=== PATIENT | male | born 1935 | race Caucasian/White ===

== ENCOUNTER 2017-08-21 21:23 | Inpatient (IN) | payer OTHER, BC ==
[~2017-08-21] VITALS: Ht 182.9 cm; Wt 119.0 kg
[2017-08-21 22:41] LABS: HEMATOCRIT 43.5 % (38.0-50.0); MCH 32.1 PG (29.0-34.0); MCHC 32.4 G/DL (30.0-36.0); MCV 99.1 FL (86-99); MEAN PLAT.VOLUME 11.3 uM^3 (9.0-12.4); NRBC (%) 0.2 /100 WBC (0-0); PLATELET COUNT 176 K/uL (156-360); RBC DIS.WIDTH-SD 50.8 % (39-53); RED BLOOD COUNT 4.39 M/uL (4.00-5.50); WHITE BLOOD COUNT 9.7 K/uL (4.1-10.2)
[2017-08-21 22:57] LABS: CHLORIDE 105 mEq/L (99-109); POTASSIUM 4.3 mEq/L (3.7-5.4); SODIUM 141 mEq/L (136-147)
[2017-08-21 22:59] LABS: GLUCOSE 230 mg/dL (70-99)
[2017-08-21 23:01] LABS: ANION GAP 10 MEQ/L (2-14)
[2017-08-21 23:04] LABS: UREA NITROGEN (BUN) 31 mg/dL (9-23)
[2017-08-21 23:20] LABS: GFR ESTIMATE (CALCULATED) 56 mL/min/
[2017-08-21 23:23] LABS: ABS NEUTROPHIL COUNT 7.8; ANISOCYTOSIS 1+; EOSINOPHIL ABS CT 0; INSTRUMENT ABS NEUTROPHIL CT 7.3 K/uL; LYMPHOCYTES 12.7 % (15.0-45.0); MYELOCYTES 0.9 %; OVALOCYTES 1+; PLAT.SUFFICIENCY ADEQUATE; POIKILOCYTOSIS 1+; SEG.NEUTROPHILS 80.5 % (46.0-76.0)
[2017-08-22] VITALS (7 sets, daily range): BP systolic 96–144; BP diastolic 55–81
[2017-08-22 00:01] LABS: TROP-I INTERPRETATION NEGATIVE; TROPONIN-I 0.05 ng/mL (0.0-0.30)
[2017-08-22] MEDS ORDERED: LIPITOR80 MG PO (00:42)
[2017-08-22] MEDS ORDERED: ATENOLOL50 MG PO (00:42)
[2017-08-22] MEDS ORDERED: NEURONTIN300 MG PO (00:42)
[2017-08-22] MEDS ORDERED: ASPIR-TRIN325 M1 PO (00:42)
[2017-08-22] MEDS ORDERED: NITROSTAT0.4 MG SL (00:43)
[2017-08-22] MEDS ORDERED: PERFOROMIS20 MCG/2 M IH (00:43)
[2017-08-22] MEDS ORDERED: HUMALOG100 UNIT/2 SC (00:43)
[2017-08-22] MEDS ORDERED: COUMADIN5 MG PO (00:44)
[2017-08-22] MEDS ORDERED: AZATHIOPRINE50 MG PO (00:45)
[2017-08-22] MEDS ORDERED: MESTINON60 MG PO (00:45)
[2017-08-22] MEDS ORDERED: NOVOLIN,HU100 UNITS/ SC ×2 (01:22→01:23)
[2017-08-22] MEDS ORDERED: ALEVE220 MG PO (01:23)
[2017-08-22 01:58] LABS: INTER. NORMALIZED RATIO 1.3; PROTHROMBIN TIME 14.4 SEC (10.2-12.9)
[2017-08-22 02:01] LABS: PTT 26.6 SEC (25-37)
[2017-08-22 02:50] LABS: POINT-OF-CARE METER ID UU13113702
[2017-08-22 04:04] LABS: URIC ACID 6.3 mg/dL (3.1-9.2)
[2017-08-22 04:41] LABS: C-REACTIVE PROTEIN 24.3 MG/L (0-10)
[2017-08-22 07:08] LABS: INTER. NORMALIZED RATIO 1.3; PROTHROMBIN TIME 15.4 SEC (10.2-12.9)
[2017-08-22 07:34] LABS: POINT-OF-CARE METER ID UU14314088
[2017-08-22 11:23] LABS: POINT-OF-CARE METER ID UU14314088
[2017-08-22 17:48] LABS: POINT-OF-CARE METER ID UU13113698
[2017-08-22 18:39] LABS: POINT-OF-CARE METER ID UU13113781
[2017-08-22 19:14] LABS: POINT-OF-CARE METER ID UU13113781
[2017-08-22 20:53] LABS: POINT-OF-CARE METER ID UU14314088
[2017-08-22 23:15] LABS: POINT-OF-CARE METER ID UU14314088
[2017-08-23 02:46] LABS: POINT-OF-CARE METER ID UU13113781
[2017-08-23 05:09] VITALS: BP 138/86
[2017-08-23 06:07] LABS: POINT-OF-CARE METER ID UU14314088
[2017-08-23 06:31] LABS: BASOPHIL COUNT 0.1 K/uL (0-0.1); EOSINOPHIL (%) 0.4 % (0-5); HEMATOCRIT 37.5 % (38.0-50.0); IMMATURE GRANULOCYTE (%) 4.2 % (0.0-0.7); IMMATURE GRANULOCYTE COUNT 0.4 K/uL; INSTRUMENT ABS NEUTROPHIL CT 7.4 K/uL; LYMPHOCYTE COUNT 1.2 K/uL (1.0-2.8); MCH 32.1 PG (29.0-34.0); MCHC 32.5 G/DL (30.0-36.0); MCV 98.7 FL (86-99); MEAN PLAT.VOLUME 10.7 uM^3 (9.0-12.4); MONOCYTE (%) 5.3 % (3-12); MONOCYTE COUNT 0.5 K/uL (0-0.8); NEUTROPHIL (%) 77.3 % (45-76); NEUTROPHIL COUNT 7.4 K/uL (1.8-6.4); PLATELET COUNT 139 K/uL (156-360); RBC DIS.WIDTH-CV 14.2 % (11.8-14.6); RBC DIS.WIDTH-SD 51.4 % (39-53); WHITE BLOOD COUNT 9.6 K/uL (4.1-10.2)
[2017-08-23 06:43] LABS: INTER. NORMALIZED RATIO 1.5
[2017-08-23 06:57] LABS: ANION GAP 9 MEQ/L (2-14); CHLORIDE 106 MEQ/L (99-109); GFR ESTIMATE (CALCULATED) > 59 mL/min/; GLUCOSE 204 mg/dL (70-99); POTASSIUM 4.1 MEQ/L (3.7-5.4); SAMPLE HEMOLYSIS CHECK 0; SAMPLE ICTERIC CHECK 0; SAMPLE LIPEMIA CHECK 0; SODIUM 140 MEQ/L (136-147); UREA NITROGEN (BUN) 21 mg/dL (9-23)
[2017-08-23 07:51] LABS: POINT-OF-CARE METER ID UU13113781
[2017-08-23 08:35] VITALS: BP 123/71
[2017-08-23 11:00] VITALS: BP 132/61
[2017-08-23 11:42] LABS: POINT-OF-CARE METER ID UU13113781
[2017-08-23 11:59] VITALS: BP 111/53
[2017-08-23 12:10] LABS: POINT-OF-CARE METER ID UU14174216
[2017-08-23 13:17] VITALS: BP 114/69
[2017-08-23 16:40] LABS: POINT-OF-CARE METER ID UU13113781
[2017-08-23 19:58] LABS: POINT-OF-CARE METER ID UU13113698
[2017-08-23 23:02] VITALS: BP 146/76
[2017-08-24] VITALS (7 sets, daily range): BP systolic 107–148; BP diastolic 69–97
[2017-08-24 02:32] LABS: BASOPHIL COUNT 0.1 K/uL (0-0.1); EOSINOPHIL COUNT 0.1 K/uL (0-0.3); HEMATOCRIT 36.3 % (38.0-50.0); IMMATURE GRANULOCYTE (%) 3.8 % (0.0-0.7); IMMATURE GRANULOCYTE COUNT 0.3 K/uL; INSTRUMENT ABS NEUTROPHIL CT 5.9 K/uL; LYMPHOCYTE COUNT 1.4 K/uL (1.0-2.8); MCH 32.3 PG (29.0-34.0); MCHC 32.8 G/DL (30.0-36.0); MCV 98.6 FL (86-99); MEAN PLAT.VOLUME 10.6 uM^3 (9.0-12.4); MONOCYTE (%) 7.2 % (3-12); MONOCYTE COUNT 0.6 K/uL (0-0.8); NEUTROPHIL (%) 70.9 % (45-76); NEUTROPHIL COUNT 5.9 K/uL (1.8-6.4); PLATELET COUNT 135 K/uL (156-360); RBC DIS.WIDTH-CV 14.2 % (11.8-14.6); RBC DIS.WIDTH-SD 51.7 % (39-53); RED BLOOD COUNT 3.68 M/uL (4.00-5.50); WHITE BLOOD COUNT 8.4 K/uL (4.1-10.2)
[2017-08-24 02:37] LABS: INTER. NORMALIZED RATIO 1.5; PROTHROMBIN TIME 17.3 SEC (10.2-12.9)
[2017-08-24 02:42] LABS: CHLORIDE 108 mEq/L (99-109); POTASSIUM 3.8 mEq/L (3.7-5.4); SODIUM 140 mEq/L (136-147)
[2017-08-24 02:44] LABS: GLUCOSE 140 mg/dL (70-99)
[2017-08-24 02:46] LABS: ANION GAP 8 MEQ/L (2-14)
[2017-08-24 02:48] LABS: GFR ESTIMATE (CALCULATED) > 59 mL/min/
[2017-08-24 02:49] LABS: UREA NITROGEN (BUN) 15 mg/dL (9-23)
[2017-08-24 06:12] LABS: METH RESISTANT S AUREUS PCR NEGATIVE (NEGATIVE)
[2017-08-24 06:23] LABS: PROBE CHECK PASS; SPECIMEN PROCESSING CONTROL PASS
[2017-08-24 08:09] LABS: POINT-OF-CARE METER ID UU13113698
[2017-08-24 10:33] LABS: Estimated Average Glucose 266 mg/dL (70-123); HEMOGLOBIN A1c (GLYCOHEMOGLOB) 10.9 % HGB (Below 5.7)
[2017-08-24 11:54] LABS: POINT-OF-CARE METER ID UU13113698
[2017-08-24 15:08] LABS: POINT-OF-CARE METER ID UU14314088; POINT-OF-CARE USER ID ADMMNS
[2017-08-24 17:00] LABS: POINT-OF-CARE METER ID UU13113698
[2017-08-24 18:24] LABS: POINT-OF-CARE METER ID UU13113675; POINT-OF-CARE USER ID ADMSLT55
[2017-08-24 21:02] LABS: POINT-OF-CARE METER ID UU13113781
[2017-08-25 04:25] VITALS: BP 105/71
[2017-08-25 05:15] LABS: BASOPHIL COUNT 0.1 K/uL (0-0.1); EOSINOPHIL (%) 0.8 % (0-5); EOSINOPHIL COUNT 0.1 K/uL (0-0.3); HEMATOCRIT 37.6 % (38.0-50.0); IMMATURE GRANULOCYTE (%) 3.2 % (0.0-0.7); IMMATURE GRANULOCYTE COUNT 0.3 K/uL; INSTRUMENT ABS NEUTROPHIL CT 5.7 K/uL; LYMPHOCYTE COUNT 1.1 K/uL (1.0-2.8); MCH 31.7 PG (29.0-34.0); MCHC 31.6 G/DL (30.0-36.0); MCV 100.3 FL (86-99); MEAN PLAT.VOLUME 10.9 uM^3 (9.0-12.4); MONOCYTE (%) 8.1 % (3-12); MONOCYTE COUNT 0.6 K/uL (0-0.8); NEUTROPHIL COUNT 5.7 K/uL (1.8-6.4); PLATELET COUNT 165 K/uL (156-360); RBC DIS.WIDTH-CV 14.1 % (11.8-14.6); RED BLOOD COUNT 3.75 M/uL (4.00-5.50); WHITE BLOOD COUNT 7.9 K/uL (4.1-10.2)
[2017-08-25 05:58] LABS: ALKALINE PHOSPHATASE 59 IU/L (3-129); ANION GAP 9 MEQ/L (2-14); CHLORIDE 104 MEQ/L (99-109); GFR ESTIMATE (CALCULATED) 48 mL/min/; GLUCOSE 303 mg/dL (70-99); INTER. NORMALIZED RATIO 1.5; POTASSIUM 4.3 MEQ/L (3.7-5.4); PROTHROMBIN TIME 16.8 SEC (10.2-12.9); SAMPLE HEMOLYSIS CHECK 0; SAMPLE ICTERIC CHECK 0; SAMPLE LIPEMIA CHECK 0; SODIUM 139 MEQ/L (136-147); TOTAL BILIRUBIN 0.9 MG/DL (0.0-1.0); UREA NITROGEN (BUN) 16 mg/dL (9-23)
[2017-08-25 07:29] LABS: POINT-OF-CARE METER ID UU13113698
[2017-08-25 08:30] VITALS: BP 107/76
[2017-08-25 11:42] LABS: POINT-OF-CARE METER ID UU14314088
[2017-08-25 11:54] VITALS: BP 103/73
[2017-08-25 15:47] VITALS: BP 114/67
[2017-08-25 16:46] LABS: POINT-OF-CARE METER ID UU13113781
[2017-08-25 19:00] VITALS: BP 120/70
[2017-08-25 20:24] LABS: POINT-OF-CARE METER ID UU14314088
[2017-08-26] VITALS (7 sets, daily range): BP systolic 95–120; BP diastolic 46–83
[2017-08-26 05:01] LABS: EOSINOPHIL (%) 1.3 % (0-5); EOSINOPHIL COUNT 0.1 K/uL (0-0.3); HEMATOCRIT 38.5 % (38.0-50.0); IMMATURE GRANULOCYTE (%) 3.8 % (0.0-0.7); IMMATURE GRANULOCYTE COUNT 0.3 K/uL; INSTRUMENT ABS NEUTROPHIL CT 4.6 K/uL; LYMPHOCYTE COUNT 1.6 K/uL (1.0-2.8); MCH 31.8 PG (29.0-34.0); MCHC 31.7 G/DL (30.0-36.0); MCV 100.3 FL (86-99); MEAN PLAT.VOLUME 10.8 uM^3 (9.0-12.4); MONOCYTE COUNT 0.6 K/uL (0-0.8); NEUTROPHIL (%) 64.2 % (45-76); NEUTROPHIL COUNT 4.6 K/uL (1.8-6.4); PLATELET COUNT 206 K/uL (156-360); RBC DIS.WIDTH-CV 13.7 % (11.8-14.6); RBC DIS.WIDTH-SD 50.5 % (39-53); RED BLOOD COUNT 3.84 M/uL (4.00-5.50); WHITE BLOOD COUNT 7.1 K/uL (4.1-10.2)
[2017-08-26 05:08] LABS: INTER. NORMALIZED RATIO 1.7; PROTHROMBIN TIME 19.5 SEC (10.2-12.9)
[2017-08-26 05:29] LABS: ALKALINE PHOSPHATASE 60 IU/L (3-129); ANION GAP 10 MEQ/L (2-14); CHLORIDE 104 MEQ/L (99-109); GFR ESTIMATE (CALCULATED) 56 mL/min/; GLUCOSE 183 mg/dL (70-99); POTASSIUM 3.8 MEQ/L (3.7-5.4); SAMPLE HEMOLYSIS CHECK 0; SAMPLE ICTERIC CHECK 0; SAMPLE LIPEMIA CHECK 0; SODIUM 142 MEQ/L (136-147); UREA NITROGEN (BUN) 16 mg/dL (9-23)
[2017-08-26 05:30] LABS: TOTAL BILIRUBIN 0.6 MG/DL (0.0-1.0)
[2017-08-26 07:48] LABS: POINT-OF-CARE METER ID UU13113781; POINT-OF-CARE USER ID NUTSLF44
[2017-08-26 08:30] LABS: RETIC HGB EQUIVALENT 31.4 (28-36); RETICULOCYTE COUNT 2.3 % (0.5-1.8)
[2017-08-26 09:03] LABS: FERRITIN 328 NG/ML (22-322); IRON 39 MCG/DL (35-150)
[2017-08-26 12:08] LABS: POINT-OF-CARE METER ID UU13113698; POINT-OF-CARE USER ID NUTSLF44
[2017-08-26 16:43] LABS: POINT-OF-CARE METER ID UU13113698; POINT-OF-CARE USER ID NUTSLF44
[2017-08-26 20:46] LABS: POINT-OF-CARE METER ID UU13113698
[2017-08-27 04:43] VITALS: BP 139/81
[2017-08-27 05:30] LABS: BASOPHIL COUNT 0.1 K/uL (0-0.1); EOSINOPHIL (%) 1.1 % (0-5); EOSINOPHIL COUNT 0.1 K/uL (0-0.3); HEMATOCRIT 36.6 % (38.0-50.0); IMMATURE GRANULOCYTE (%) 3.3 % (0.0-0.7); IMMATURE GRANULOCYTE COUNT 0.2 K/uL; INSTRUMENT ABS NEUTROPHIL CT 4.3 K/uL; LYMPHOCYTE COUNT 1.1 K/uL (1.0-2.8); MCH 31.3 PG (29.0-34.0); MCHC 31.4 G/DL (30.0-36.0); MCV 99.7 FL (86-99); MEAN PLAT.VOLUME 10.3 uM^3 (9.0-12.4); MONOCYTE (%) 9.5 % (3-12); MONOCYTE COUNT 0.6 K/uL (0-0.8); NEUTROPHIL (%) 67.9 % (45-76); NEUTROPHIL COUNT 4.3 K/uL (1.8-6.4); PLATELET COUNT 231 K/uL (156-360); RBC DIS.WIDTH-CV 13.8 % (11.8-14.6); RED BLOOD COUNT 3.67 M/uL (4.00-5.50); WHITE BLOOD COUNT 6.3 K/uL (4.1-10.2)
[2017-08-27 05:34] LABS: INTER. NORMALIZED RATIO 1.9; PROTHROMBIN TIME 22.2 SEC (10.2-12.9)
[2017-08-27 05:57] LABS: ALKALINE PHOSPHATASE 61 IU/L (3-129); ANION GAP 8 MEQ/L (2-14); CHLORIDE 104 MEQ/L (99-109); GFR ESTIMATE (CALCULATED) > 59 mL/min/; GLUCOSE 218 mg/dL (70-99); POTASSIUM 3.8 MEQ/L (3.7-5.4); SAMPLE HEMOLYSIS CHECK 0; SAMPLE ICTERIC CHECK 0; SAMPLE LIPEMIA CHECK 0; SODIUM 141 MEQ/L (136-147); TOTAL BILIRUBIN 0.5 MG/DL (0.0-1.0); UREA NITROGEN (BUN) 14 mg/dL (9-23)
[2017-08-27 07:38] LABS: POINT-OF-CARE METER ID UU14174216
[2017-08-27 08:40] VITALS: BP 126/86
[2017-08-27 11:16] LABS: POINT-OF-CARE METER ID UU14174216
[2017-08-27 12:00] VITALS: BP 116/79
[2017-08-27] MEDS ORDERED: DUONEB 2.5-0.5 M3 ML AEROSOL (15:57)
[2017-08-27] MEDS ORDERED: KEFLEX500 MG PO (15:57)
[2017-08-27] MEDS ORDERED: ELIQUIS5 MG PO ×2 (15:58→15:59)
[2017-08-27] MEDS ORDERED: NOVOLOG PE100 UNITS/ SC (15:59)
[2017-08-27] MEDS ORDERED: LEVEMIR100 UNIT/2 SC (15:59)
[2017-08-27] MEDS ORDERED: BACTROBAN OINTM22 GM TP (16:00)
[2017-08-27] MEDS ORDERED: ENDOCET 5-3251 EACH PO (16:00)
[2017-08-27 16:25] LABS: POINT-OF-CARE METER ID UU14174216
[2017-08-27 16:40] VITALS: BP 123/80
== END 2017-08-27 17:37 | DRG 623 ==
LOC: EME 21:23 → EDOF 08-22 02:34 → 4EAST 08-22 02:34 → ENRESERV 08-22 02:36 → 4EAST 08-22 04:38
PROVIDERS: Emergency Medicine; Hospitalist; Student in an Organized Health Care Education/Training Program; Surgery
PROC: 0H9FXZX Drainage of Right Hand Skin, External Approach, Diagnostic (ICD-10-PCS; principal; 2017-08-22)
PROC: 0JBQ0ZZ Excision of Right Foot Subcutaneous Tissue and Fascia, Open Approach (ICD-10-PCS; 2017-08-24)
DX: E11.621 Type 2 diabetes mellitus with foot ulcer (principal); L97.512 Non-pressure chronic ulcer of other part of right foot with fat layer exposed; L02.611 Cutaneous abscess of right foot; L03.115 Cellulitis of right lower limb; B95.61 Methicillin susceptible Staphylococcus aureus infection as the cause of diseases classified elsewhere; B96.4 Proteus (mirabilis) (morganii) as the cause of diseases classified elsewhere; E11.51 Type 2 diabetes mellitus with diabetic peripheral angiopathy without gangrene; L03.011 Cellulitis of right finger; L02.511 Cutaneous abscess of right hand; I82.441 Acute embolism and thrombosis of right tibial vein; E11.42 Type 2 diabetes mellitus with diabetic polyneuropathy; E11.649 Type 2 diabetes mellitus with hypoglycemia without coma; G70.00 Myasthenia gravis without (acute) exacerbation; I70.201 Unspecified atherosclerosis of native arteries of extremities, right leg; S80.822A Blister (nonthermal), left lower leg, initial encounter; I10 Essential (primary) hypertension; I48.2 Chronic atrial fibrillation; E11.65 Type 2 diabetes mellitus with hyperglycemia; R13.10 Dysphagia, unspecified; I25.10 Atherosclerotic heart disease of native coronary artery without angina pectoris; I25.82 Chronic total occlusion of coronary artery; G47.33 Obstructive sleep apnea (adult) (pediatric); R15.9 Full incontinence of feces; R60.0 Localized edema; J45.909 Unspecified asthma, uncomplicated; E78.5 Hyperlipidemia, unspecified; E66.01 Morbid (severe) obesity due to excess calories; Z68.39 Body mass index [BMI] 39.0-39.9, adult; Z79.01 Long term (current) use of anticoagulants; Z79.4 Long term (current) use of insulin; Z80.3 Family history of malignant neoplasm of breast; Z82.5 Family history of asthma and other chronic lower respiratory diseases; Z83.3 Family history of diabetes mellitus; Z85.46 Personal history of malignant neoplasm of prostate; Z87.891 Personal history of nicotine dependence
CPT/HCPCS: 71010; 73200; 73630; 73720; 80048; 80053; 80202; 81003; 82607; 82728; 82746; 82948; 83036; 83540; 83605; 84466; 84484; 84550; 85025; 85045; 85610; 85651; 85730; 86140; 87040; 87070; 87075; 87077; 87147; 87186; 87205; 87641; 93005; 93926; 93970; 94010; 94640; 94640 76; 94760; 94799; 97530 GO; 99202; 99281; 99285; A6260; J0690; J1650; J1815; J2250; J2405; J2543; J3370; J7030; J7050; J7500; S0020